=== PATIENT | female | born 1945 | race African-American/Black ===

== ENCOUNTER 2016-06-19 11:20 | Emergency (ER) | payer OTHER ==
[~2016-06-19] VITALS: Ht 160 cm; Wt 90.7 kg
[2016-06-19 11:28] VITALS: BP 118/50
== END 2016-06-19 14:38 | disposition home or self-care (01) ==
LOC: ER 11:23
DX: J20.9 Acute bronchitis, unspecified (principal); E78.5 Hyperlipidemia, unspecified; I10 Essential (primary) hypertension; Z85.3 Personal history of malignant neoplasm of breast
CPT/HCPCS: 71020